=== PATIENT | male | born 1950 | race Caucasian/White ===

== ENCOUNTER 2017-08-06 22:59 | Emergency (ER) | payer OTHER ==
[~2017-08-06] VITALS: Ht 188 cm; Wt 98.2 kg
[2017-08-07] MEDS ORDERED: METOPROLOL TARTRATE 50 MG TABLET PO ONE (00:30)
[2017-08-07] MEDS ORDERED: METOPROLOL TARTRATE 25 MG TABLET ONE (00:34)
[2017-08-07] MEDS ORDERED: LORazepam 0.5MG TABLET ONE (01:33)
[2017-08-07 01:35] VITALS: BP 113/98
[2017-08-07] MEDS ORDERED: LORazepam 1MG TABLET PO ONE (02:00)
[2017-08-07] MEDS ORDERED: LORazepam 0.5MG TABLET PO ONE (02:00)
== END 2017-08-07 02:39 | disposition home or self-care (01) ==
LOC: ED 23:59
DX: R21 Rash and other nonspecific skin eruption (principal); I48.91 Unspecified atrial fibrillation; F17.200 Nicotine dependence, unspecified, uncomplicated
CPT/HCPCS: 99283